=== PATIENT | female | born 1970 | race American Indian/Alaskan Native ===

== ENCOUNTER 2017-10-19 10:57 | Emergency (ER) | payer BC ==
[2017-10-19 10:57] VITALS: BMI 33.9
[2017-10-19 11:07] VITALS: TEMP 98.4
--- NOTE | 2017-10-19 11:36 | ED PDOC ---
Arrival/HPI - General Chief Complaint: Syncope Time Seen by Provider: 10/19/17 11:19 Historian: Patient, Spouse - History of Present Illness Narrative History of Present Illness (Text): you were treated in the ED today for hx of thyroid cancer with treatment, irritable bowel syndrome, and yesterday was getting up and turned then passed out without clear head injury but otherwise without any further episodes/neck pain/nausea/vomiting/headache/dizziness/difficulty breathing/chest pain/abdomen pain/numbness/tingling/loss of limb function/pain with urination/prior blood clots/drug use. 10/19/17 11:36 Time/Duration: 24 hours Symptom Onset: Sudden Symptom Course: Resolved Quality: Other (no pain) Activities at Onset: Rest Context: Sitting Past Medical History - Provider Review Nursing Documentation Reviewed: Yes - Travel History Have you recently traveled outside [place] w/in the past 3 mons?: No - Cardiac Hx Cardiac Disorders: No - Pulmonary Hx Respiratory Disorders: No - Neurological Hx Neurological Disorder: No - HEENT Hx HEENT Disorder: No - Renal Hx Renal Disorder: Yes Other/Comment: R KIDNEY MASS - Endocrine/Metabolic Hx Endocrine Disorders: Yes Other/Comment: THYROIDECTOMY - Hematological/Oncological Hx Blood Transfusions: No Hx Blood Transfusion Reaction: No - Integumentary Hx Dermatological Disorder: No - Musculoskeletal/Rheumatological Hx Musculoskeletal Disorders: Yes Other/Comment: SHOULDER PAIN - Gastrointestinal Hx Gastrointestinal Disorders: Yes Hx Fatty Liver Disease: Yes - Genitourinary/Gynecological Hx Genitourinary Disorders: No - Psychiatric Hx Psychophysiologic Disorder: No Hx Substance Use: No - Surgical History Hx Section: Yes Other/Comment: THYROIDECTOMY - Anesthesia Hx Anesthesia Reactions: No Hx Malignant Hyperthermia: No Family/Social History - Physician Review Nursing Documentation Reviewed: Yes Family/Social History: No Known Family HX Smoking Status: Never Smoked Hx Alcohol Use: No Hx Substance Use: No Allergies/Home Meds Allergies/Adverse Reactions: Allergies shellfish derived Allergy (Verified 10/19/17 11:00) ANAPHYLAXIS Home Medications: Home Meds Medication Instructions Recorded Confirmed Levothyroxine [Synthroid] 100 mcg PO DAILY 10/19/17 10/19/17 Review of Systems - Review of Systems Constitutional: Normal Eyes: Normal ENT: Normal Respiratory: Normal Cardiovascular: Normal Gastrointestinal: Normal Genitourinary Female: Normal Musculoskeletal: Normal Skin: Normal Neurological: Normal Endocrine: Normal Hemo/Lymphatic: Normal Psychiatric: Normal Physical Exam Vital Signs Reviewed: Yes Vital Signs Temp Pulse Resp BP Pulse Ox 10/19/17 11:01 98.4 F 74 16 163/84 H 97 Temperature: Afebrile Blood Pressure: Hypertensive Pulse: Regular Respiratory Rate: Normal Appearance: Positive for: Well-Appearing, Non-Toxic, Comfortable Pain Distress: None Mental Status: Positive for: Alert and Oriented X 3 - Systems Exam Head: Present: Atraumatic, Normocephalic Pupils: Present: PERRL Extroacular Muscles: Present: EOMI Conjunctiva: Present: Normal Ears: Present: Normal Mouth: Present: Moist Mucous Membranes Pharnyx: Present: Normal Nose (External): Present: Atraumatic Nose (Internal): Present: Normal Inspection Neck: Present: Normal Range of Motion, Other (no c-t-l spinal or paraspinal tenderness) Respiratory/Chest: Present: Clear to Auscultation, Good Air Exchange Cardiovascular: Present: Regular Rate and Rhythm Abdomen: No: Tenderness, Distention, Normal Bowel Sounds, Peritoneal Signs, Rebound, Guarding, McBurney's Point Tender, Rovsing's Sign Present, Hernias, Feeding Tubes, Ostomy Tubes, Mass/Organomegaly, Scars, Other Back: Present: Normal Inspection Upper Extremity: Present: Normal Inspection Lower Extremity: Present: Normal Inspection Neurological: Present: GCS=15, CN II-XII Intact, Speech Normal, Motor Func Grossly Intact Medical Decision Making ED Course and Treatment: you were treated in the ED today for hx of thyroid cancer with treatment, irritable bowel syndrome, and yesterday was getting up and turned then passed out without clear head injury but otherwise without any further episodes/neck pain/nausea/vomiting/headache/dizziness/difficulty breathing/chest pain/abdomen pain/numbness/tingling/loss of limb function/pain with urination/prior blood clots/drug use. Your on control. You were otherwise breathing easily, smiling and talking with your , good strength/sensation, walking easily, clear lungs, no abdomen tenderness, no spinal tenderness, no fever temp 98.4, stable heart rate 74, stable breathing rate 74, excellent oxygen level 97% room air, elevated blood pressure 163/74 which we recommend repeat in 2-3 days primary care office to determine further treatment, you have blood tests no infection count 3.7, stable blood level hemoglobin 13/platelets 264, stable chemistry, Liver Alklaline Phosphatase mildly elevated 124, magnesium mildly elevated 2.4, heart blood test negative, low risk of blood clot negative less than 200, urine test negative for infection, urine test negative, radiology ct head no acute, ECG normal sinus rhythm, observation done in the ED with improvement, counselled to stop driving till first clinic visit and thus discharged home with . 1. Recommend follow-up primary care 2 days to review symptoms, referral to neurology and cardiology clinic to review symptoms. 4. If any worsening pain, fever, chills, nausea, vomiting, difficulty breathing, numbness, loss of limb function, pain with urination or any medical condition then return to the ED. 10/19/17 11:49 10/19/2017 13:[address] IMPRESSION: No acute findings. Dictator: Kalpesh Perez MD 10/19/17 13:42 10/19/17 13:43 10/19/17 13:43 10/19/17 13:44 10/19/17 14:05 Reassessment Condition: Re-examined, Improved - Lab Interpretations Lab Results: 10/19/17 11:50 10/19/17 11:50 Lab Results 10/19/17 11:50: Sodium 143, Potassium 3.8, Chloride 106, Carbon Dioxide 28, Anion Gap 13, BUN 15, Creatinine 0.9, Est GFR ( Amer) > 60, Est GFR (Non- Af Amer) > 60, Random Glucose 95, Calcium 9.7, Magnesium 2.4 H, Total Bilirubin 0.7, AST 30, ALT 31, Alkaline Phosphatase 127 H, Lactate Dehydrogenase 469, Total Creatine Kinase 125, Troponin I 0.03, Total Protein 7.3, Albumin 3.9, Globulin 3.5, Albumin/Globulin Ratio 1.1 10/19/17 11:50: Urine Color Yellow, Urine Appearance Clear, Urine pH 6.0, Ur Specific Carroll 1.025, Urine Protein Negative, Urine Glucose (UA) Negative, Urine Ketones Negative, Urine Blood Negative, Urine Nitrate Negative, Urine Bilirubin Negative, Urine Urobilinogen 0.2, Ur Leukocyte Esterase Negative 10/19/17 11:50: PT 11.4, INR 0.99, APTT 31.1, D-Dimer, Quantitative < 200 10/19/17 11:50: WBC 3.7 L, RBC 4.55, Hgb 13.7, Hct 40.6, MCV 89.2, MCH 30.1, MCHC 33.7, RDW 13.8, Plt Count 264, MPV 11.0, Gran % 43.6 L, Lymph % (Auto) 44.1 H, Lamb % (Auto) 8.5 H, Eos % (Auto) 2.7, Baso % (Auto) 1.1, Gran # 1.59, Lymph # (Auto) 1.6, Lamb # (Auto) 0.3, Eos # (Auto) 0.1, Baso # (Auto) 0.04 I have reviewed the lab results: Yes - RAD Interpretation Radiology Orders: 10/19/17 12:30 HEAD W/O CONTRAST [CT] Stat Reclamation Kettle Tender: Radiologist (see mdm) - EKG Interpretation Interpreted by ED Physician: Yes (NSR, flipped t waves avr, v1, iii) NIHSS Stroke Scale 3 - Date/Time Evaluation Performed Date Performed: 10/19/17 When Was NIHSS Performed: Baseline - How Severe is the Stroke Level of Consciousness: 0=Alert LOC to Questions: 0=Both comments correct LOC to commands: 0=Obeys both correctly Best Gaze: 0=Normal Visual: 0=No visual loss Facial: 0=Normal Motor Arm - Left: 0=No drift Motor Arm - Right: 0=No drift Motor Leg - Left: 0=No drift Motor Leg - Right: 0=No drift Limb Ataxia: 0=Absent Sensory: 0=Normal Best Language: 0=No aphasia Dysarthia: 0=Normal articulation Extinction & Inattention (Neglect): 0=Normal, no object Score: 0 Disposition/Present on Arrival - Present on Arrival Any Indicators Present on Arrival: No History of DVT/PE: No History of Uncontrolled Diabetes: No Urinary Catheter: No History of Decub. Ulcer: No History Surgical Site Infection Following: None - Disposition Have Diagnosis and Disposition been Completed?: Yes Diagnosis: Syncope Disposition: HOME/ ROUTINE Disposition Time: 13:45 Patient Plan: Discharge Patient Problems: Current Active Problems Problem Status Onset Syncope Acute Condition: IMPROVED Discharge Instructions (ExitCare): Syncope (Fainting) (DC), Syncope (ED) Additional Instructions: you were treated in the ED today for hx of thyroid cancer with treatment, irritable bowel syndrome, and yesterday was getting up and turned then passed out without clear head injury but otherwise without any further episodes/neck pain/nausea/vomiting/headache/dizziness/difficulty breathing/chest pain/abdomen pain/numbness/tingling/loss of limb function/pain with urination/prior blood clots/drug use. Your on control. You were otherwise breathing easily, smiling and talking with your , good strength/sensation, walking easily, clear lungs, no abdomen tenderness, no spinal tenderness, no fever temp 98.4, stable heart rate 74, stable breathing rate 74, excellent oxygen level 97% room air, elevated blood pressure 163/74 which we recommend repeat in 2-3 days primary care office to determine further treatment, you have blood tests no infection count 3.7, stable blood level hemoglobin 13/platelets 264, stable chemistry, Liver Alklaline Phosphatase mildly elevated 124, magnesium mildly elevated 2.4, heart blood test negative, low risk of blood clot negative less than 200, urine test negative for infection, urine test negative, radiology ct head no acute, ECG normal sinus rhythm, observation done in the ED with improvement, counselled to stop driving till first clinic visit and thus discharged home with . 1. Recommend follow-up primary care 2 days to review symptoms, referral to neurology and cardiology clinic to review symptoms. 4. If any worsening pain, fever, chills, nausea, vomiting, difficulty breathing, numbness, loss of limb function, pain with urination or any medical condition then return to the ED. Forms: [employer] ([employer])
[2017-10-19 12:02] LABS: BASO # 0.04 K/mm3 (0.0-2.0); BASO % 1.1 % (0.0-3.0); EOS # 0.1 (0.0-0.7); EOS % 2.7 % (1.5-5.0); GRAN # 1.59 (1.4-6.5); GRAN % 43.6 % (50.0-68.0); HEMOGLOBIN 13.7 g/dL (12.0-16.0); LYMPH # 1.6 (1.2-3.4); LYMPH % 44.1 % (22.0-35.0); MEAN CELL VOLUME 89.2 fl (80.0-105.0); MEAN CORPUSCULAR HEMOGLOBIN 30.1 pg (25.0-35.0); MEAN CORPUSCULAR HGB CONC 33.7 g/dl (31.0-37.0); MONO # 0.3 (0.1-0.6); MONO % 8.5 % (1.0-6.0); RBC 4.55 10^6/uL (3.5-6.1); RED CELL DISTRIBUTION WIDTH 13.8 % (11.5-14.5); WHITE BLOOD COUNT 3.7 10^3/ul (4.5-11.0)
[2017-10-19 12:03] LABS: URINE BILIRUBIN NEGATIVE (NEGATIVE); URINE BLOOD NEGATIVE (NEGATIVE); URINE GLUCOSE (UA) NEGATIVE (NEGATIVE); URINE LEUKOCYTE ESTERASE NEGATIVE Leu/uL (NEGATIVE); URINE PROTEIN NEGATIVE mg/dL (<30 mg/dL); URINE UROBILINOGEN 0.2 E.U./dL (<1 E.U./dL)
[2017-10-19 12:05] LABS: URINE APPEARANCE CLEAR (CLEAR); URINE COLOR YELLOW (YELLOW)
[2017-10-19 12:17] LABS: D DIMER < 200 ng/mL (0-243); INR 0.99 (0.93-1.08); PARTIAL THROMBOPLASTIN TIME 31.1 Seconds (25.1-36.5); PROTHROMBIN TIME 11.4 SECONDS (9.4-12.5)
[2017-10-19 12:21] LABS: ALB/GLOB RATIO 1.1 (1.1-1.8); ALBUMIN 3.9 g/dL (3.0-4.8); ALT/SGPT 31 U/L (7-56); AST/SGOT 30 U/L (14-36); BLOOD UREA NITROGEN 15 mg/dL (7-21); CALCIUM 9.7 mg/dL (8.4-10.5); GFR AFRICAN-AMERICAN > 60; GFR NON-AFRICAN AMERICAN > 60
[2017-10-19 12:33] LABS: TROPONIN I 0.03 ng/mL
--- NOTE | 2017-10-19 13:05 | CT ---
PROCEDURE: CT HEAD WITHOUT CONTRAST. HISTORY: 47f, syncope COMPARISON: None available. TECHNIQUE: Axial computed tomography images were obtained through the head/brain without intravenous contrast. Radiation dose: Total exam DLP = 892 mGy-cm. This CT exam was performed using one or more of the following dose reduction techniques: Automated exposure control, adjustment of the mA and/or kV according to patient size, and/or use of iterative reconstruction technique. FINDINGS: HEMORRHAGE: No intracranial hemorrhage. BRAIN: No mass effect or edema. No atrophy or chronic microvascular ischemic changes. VENTRICLES: Unremarkable. No hydrocephalus. CALVARIUM: Unremarkable. PARANASAL SINUSES: Unremarkable as visualized. No significant inflammatory changes. MASTOID AIR CELLS: Unremarkable as visualized. No inflammatory changes. OTHER FINDINGS: None. IMPRESSION: No acute findings
[2017-10-19 14:20] VITALS: BP 126/70; PULSE 76; RESP 18; O2SAT 100
--- NOTE | 2017-10-19 19:22 | CARD ---
APPROVED REPORT EKG Measurement Heart [id number] <Conclusion> Normal sinus rhythm Normal ECG
== END 2017-10-19 14:26 | disposition home or self-care (01) ==
LOC: ED 10:57
DX: R55 Syncope and collapse (principal); Z85.850 Personal history of malignant neoplasm of thyroid